=== PATIENT | male | born 1960 | race Caucasian/White ===

== ENCOUNTER 2019-11-02 11:43 | Emergency (ER) | payer BC, SELFPAY ==
--- NOTE | ~2019-11-02 | XR_ITS ---
EXAMINATION: XR chest 2V EXAM DATE: 11/02/2019 12:54 INDICATION: Mid chest pain. TECHNIQUE: Frontal and lateral projections of the chest obtained and reviewed. There is no prior padma dy for comparison. FINDINGS: The lungs are clear. There are no pleural effusions. The cardiomediastinal silhouette is within normal limits. There is no pneumothorax suspected. Old right fifth rib fracture posteriorly. Mild mid thoracic compression fractures likely chronic. IMPRESSION: No acute cardiopulmonary findings. Reviewed, dictated and finalized at location A.
[2019-11-02 11:46] VITALS: BP 180/92; PULSE 88; RESP 20; TEMP 36.3; O2SAT 100
[2019-11-02 11:54] VITALS: PULSE 88
[2019-11-02 11:55] VITALS: BP 182/104; PULSE 83; RESP 16; O2SAT 97
--- NOTE | 2019-11-02 11:56 | ECG_ITS ---
Measurements Intervals [place] Rate: 86 P: 59 DE: 179 QRS: -14 QRSD: 98 T: 31 QT: 342 QTc: 409 Interpretive Statements SINUS RHYTHM VOLTAGE CRITERIA FOR LVH LOW VOLTAGE- PRECORDIAL LEADS MINIMAL Q WAVES- LATERAL LEADS BASELINE ARTIFACT- I, III, AVL BORDERLINE ECG Electronically Signed On 11-02-2019 15:08:43 CDT by Greg Starks D.O.
--- NOTE | 2019-11-02 12:18 | ED.GENADULT ---
HPI - General Adult General Chief complaint: Unspecified Stated complaint: nausea, lethargy, not feeling well Time Seen by Provider: 11/02/19 11:52 Source: patient Mode of arrival: ambulatory Limitations: no limitations History of Present Illness HPI narrative: Patient is a 59-year-old male who presents to the emergency department with complaint of indigestion, nausea, and not feeling well . Patient reports onset of symptoms a few hours ago. On further questioning patient does report some diffuse pain across his chest that he describes specifically as indigestion. Patient states he has issues with indigestion frequently and normally Tums helps. Patient took antiacid today and did not get relief of symptoms and something did not feel right to him. Onset (ago): hour(s) Associated symptoms: chest pain and nausea/vomiting Related Data Allergies Allergy/AdvReac Type Severity Reaction Status Date / Time No Known Allergies Allergy Mild Verified 11/02/19 11:55 Review of Systems Review of Systems: All systems reviewed & are unremarkable except as noted in HPI and below Constitutional: Constitutional: Denies chills, Denies excessive sweating and Denies fever(s) Cardiovascular: Cardiovascular: Reports chest pain and Denies diaphoresis Respiratory: Respiratory: Denies cough and Denies dyspnea Gastrointestinal: Gastrointestinal: Denies abdominal pain, Denies diarrhea, Reports nausea and Denies vomiting PMF Past Medical History Medical History (Updated 11/02/19 @ 16:28 by Yoanna Siddiqui MD) No significant past medical history Surgical History Surgical History (Updated 11/02/19 @ 12:21 by Yoanna Siddiqui MD) No significant past surgical history Social History Social History (Updated 11/02/19 @ 12:21 by Yoanna Siddiqui MD) Tobacco type: cigars Exam Const: General: cooperative, no acute distress and alert Nutritional Appearance: obese Orientation/consciousness: patient oriented x3 Limitations: no limitations Resp: Effort & Inspection: normal respiratory effort Auscultation: clear to auscultation bilaterally Cardio: Rate: regular rate Rhythm: regular rhythm GI: GI Palp: Yes Soft to palpation and No Tenderness to palpation present (GI) Auscultation: normal bowel sounds Skin: General skin exam: normal color Neuro: General: patient oriented x3 Cognition (Neuro): normal cognition Speech: normal speech Extrem: General: normal to inspection, full ROM and no clubbing, cyanosis or edema Psych: Mental Status: mental status grossly normal Affect: normal affect Attitude: cooperative Course Course Emergency Course: Patient feels better on reevaluation. Patient has low risk heart score and negative troponin x2. Patient states he belched and feels better. Patient reports recurrent history of indigestion symptoms. Patient reports the feeling of dizziness and nausea was new for him. Patient denies any raymond chest pain or indigestion symptoms that are different it was the associated symptoms that have him concerned. Discussed with patient appropriate candidate for outpatient management given low risk heart score and negative troponin x2. Advised he may require further evaluation by his primary care physician to completely exclude heart disease, but did not necessitate admission at this time. Patient did have elevated blood pressure when he came into the emergency department, but has normalized on reevaluation. Patient states he last saw his primary care physician a couple months ago and states his blood pressure was minimally elevated, but his primary care physician did not feel it was high enough to require any kind of medications. Patient advised importance of smoking cessation and weight loss to help manage his cardiac risk factors and that he should follow-up with his primary care physician for further care. 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 Vital Si
[2019-11-02 12:28] LABS: Basophils Absolute Auto 0.1 K/mm3 (0.0-0.1); Basophils Percent Auto 1.2 % (0.2-1.2); Eosinophils Absolute Auto 0.2 K/mm3 (0-0.3); Eosinophils Percent Auto 3.2 % (0-4.4); Hematocrit 44.9 % (42.0-52.0); Immature Granulocyte Absolute 0.02 K/mm3 (0.00-0.031); Immature Granulocyte Percent A 0.3 % (0-0.5); Lymphocytes Absolute Auto 1.47 K/mm3 (0.9-3.2); Lymphocytes Percent Auto 25.1 % (18.3-44.2); Mean Corpuscular HGB Conc 33.4 g/dl (32-36); Mean Corpuscular Hemoglobin 31.5 pg (26-34); Mean Corpuscular Volume 94.3 fl (80-100); Mean Platelet Volume 11.2 fl (7.4-10.4); Monocytes Absolute Auto 0.6 K/mm3 (0.1-0.6); Monocytes Percent Auto 10.4 % (2.6-8.5); Neutrophils Absolute Auto 3.5 K/mm3 (1.3-6.7); Neutrophils Percent Auto 59.8 % (45.5-73.1); Platelet Count Result 297 k/mm3 (150-375); Red Blood Count 4.76 M/mm3 (4.6-6.20); Red Cell Distribution Width 13.9 % (11.5-14.5); White Blood Count 5.9 K/mm3 (4.5-10.0)
[2019-11-02] MEDS: ASPIRIN 81 MG CHEWABLE TABLET 324 MG PO (12:28)
[2019-11-02] MEDS: NITROGLYCERIN OINTMENT 1 INCH DOSE TRANSDERM (12:29)
[2019-11-02 12:49] LABS: Alanine Aminotransferase 30 U/L (4-50); Albumin Level 4.6 g/dL (3.5-5.1); Alkaline Phosphatase 73 U/L (38-126); Aspartate Amino Transferase 34 U/L (17-59); Bilirubin,Total 0.5 mg/dL (0.2-1.3); Blood Urea Nitrogen 12 mg/dL (9-20); Calcium 10.5 mg/dL (8.4-10.2); Carbon Dioxide 26 mmol/L (22-30); Chloride 101 mmol/L (98-107); Estimated CRCL calculation 131 ml/min; Estimated Glomerular Filt Rate > 60; Glucose 107 mg/dL (75-110); INR 0.9; Lipase 103 U/L (23-300); Partial Thromboplastin Time 25.9 SECONDS (22.3-36.8); Potassium 4.1 mmol/L (3.4-5.0); Prothrombin Time 11.8 Seconds (11.1-14.7); Sodium 133 mmol/L (137-145)
[2019-11-02 13:01] LABS: Troponin I < 0.012 ng/mL (0.000-0.034)
[2019-11-02 14:51] VITALS: BP 133/78; PULSE 96; RESP 14; O2SAT 96
[2019-11-02 15:09] LABS: Add Urine Microscopic? YES; Appearance Urine Clear (Clear); Bilirubin Urine Negative (Negative); Blood Urine 1+ (Negative); Color Urine Yellow (Yellow); Glucose Urine UA Negative (Negative); Ketones Urine Negative (Negative); Leukocyte Esterase Ur Negative LEU/UL (Negative); Mucus Urine Rare /lpf; Nitrate Urine Negative (Negative); Protein Urine Negative (Negative); Specific Grav Ur 1.015 (1.001-1.035); Urobilinogen Urine Negative mg/dL (<2.0); WBC Urine 0-3 /hpf
[2019-11-02 15:44] LABS: Troponin I < 0.012 ng/mL (0.000-0.034)
[2019-11-02 16:08] VITALS: BP 118/78; PULSE 94; RESP 16; O2SAT 96
[2019-11-02 17:02] VITALS: BP 111/72; PULSE 75; RESP 16; O2SAT 100
== END 2019-11-02 17:03 | disposition home or self-care (01) ==
PROVIDERS: Emergency Provider Emergency Medicine; PCP Family Medicine Adolescent Medicine
DX: R07.89 Other chest pain (principal); R94.31 Abnormal electrocardiogram [ECG] [EKG]
CPT/HCPCS: 36415; 71046; 80053; 81001; 83690; 84484; 85025; 85610; 85730; 93005; 99284; A9270

== ENCOUNTER 2019-11-19 08:52 | Outpatient (CLI) | payer BC, SELFPAY ==
--- NOTE | 2019-11-19 | EST_ITS ---
Patient Info Name: Howard Escalante Age: 59 years : 1960 Gender: Male Ht: 70 in Wt: 230 lbs BSA: 2.30 m2 Exam Date: 11/19/2019 9:52 AM Exam Location: [facility] Patient Status: Outpatient Admit Date: 11/19/2019 Staff Ordering Physician: Baljit Li MD Security Guard: Cortez Celaya RDCS, RT Attending Provider: GREG BLEVINS Referring Physician: Guillermo LI; Exercise Technologist: Cortez Celaya RDCS, RT Exercise Physician: Greg Blevins DO Exam Type: CA stress echo Study Info Indications R07.89 - Other chest pain Treadmill exercise stress echocardiogram is performed. Summary 1. 1. Negative Aneudy exercise stress test for ischemic ST changes by ECG criteria. 2. 2. Mildly reduced functional capacity, achieving 8.9 METs of workload. 3. 3. Baseline hypertension. 4. 4. Appropriate HR response to exercise. 5. 5. Appropriate HR recovery at 1 minute post exercise. 6. 6. Negative stress echocardiogram for ischemia by wall motion analysis. 7. 7. Patient informed of the above results. Stress Echo Findings Left Ventricle Appropriate increase in LV endocardial thickening with systole. Appropriate augmentation of contractility with systole. No wall motion abnormality. Left Ventricle Normal LV systolic function, no wall motion abnormality. Protocol: Aneudy Stress ECG Details Stage: REST Duration (min): 2 min : 38 sec Speed (mph): 0.0 Grade (%): 0 HR (bpm): 74 SBP (mmHg): 142 DBP (mmHg): 89 METS: --- Stage: REST Duration (min): 18 min : 35 sec Speed (mph): 0.0 Grade (%): 0 HR (bpm): 83 SBP (mmHg): 142 DBP (mmHg): 89 METS: --- Stage: STAGE 1 Duration (min): 1 min : 0 sec Speed (mph): 1.7 Grade (%): 10 HR (bpm): 113 SBP (mmHg): 142 DBP (mmHg): 89 METS: --- Stage: STAGE 1 Duration (min): 2 min : 0 sec Speed (mph): 1.7 Grade (%): 10 HR (bpm): 119 SBP (mmHg): 142 DBP (mmHg): 89 METS: --- Stage: STAGE 1 Duration (min): 3 min : 0 sec Speed (mph): 1.7 Grade (%): 10 HR (bpm): 124 SBP (mmHg): 186 DBP (mmHg): 96 METS: --- Stage: STAGE 2 Duration (min): 1 min : 0 sec Speed (mph): 2.5 Grade (%): 12 HR (bpm): 133 SBP (mmHg): 186 DBP (mmHg): 96 METS: --- Stage: STAGE 2 Duration (min): 2 min : 0 sec Speed (mph): 2.5 Grade (%): 12 HR (bpm): 136 SBP (mmHg): 195 DBP (mmHg): 90 METS: --- Stage: STAGE 2 Duration (min): 3 min : 0 sec Speed (mph): 2.5 Grade (%): 12 HR (bpm): 139 SBP (mmHg): 195 DBP (mmHg): 90 METS: --- Stage: STAGE 3 Duration (min): 1 min : 0 sec Speed (mph): 3.4 Grade (%): 14 HR (bpm): 149 SBP (mmHg): 188 DBP (mmHg): 95 METS: --- Stage: STAGE 3 Duration (min): 1 min : 8 sec Speed (mph): 0.0 Grade (%): 0 HR (bpm): 149 SBP (mmHg): 188 DBP (mmHg): 95 METS: --- Stage: RECOVERY Duration (min): 0 min : 51
== END 2019-11-19 08:53 | disposition home or self-care (01) ==
PROVIDERS: PCP Family Medicine Adolescent Medicine; Visit Provider Family Medicine Adolescent Medicine
DX: R07.89 Other chest pain (principal)
CPT/HCPCS: 93351